=== PATIENT | male | born 2000 | race Two or more races ===

== ENCOUNTER 2024-12-17 17:06 | Emergency (ER) | payer OTHER ==
[~2024-12-17] VITALS: Ht 175.3 cm; Wt 70.3 kg
[2024-12-17] MEDS ORDERED: PROTONIX20 MG (18:00)
[2024-12-17] MEDS ORDERED: NASAL ALLERGY16.9 ML (18:00)
[2024-12-17 18:58] LABS: BASO % 0.5 % (0.1-1.2); EOS # 0.28 (0.04-0.54); EOS % 2.8 % (0.7-7.0); HEMATOCRIT 40.6 % (40.1-51.0); HEMOGLOBIN 13.6 g/dL (13.7-17.5); LYMPH # 1.92 (1.18-3.74); LYMPH % 19.4 % (19.3-53.1); MEAN CORPUSCULAR HEMOGLOBIN 29.9 pg (25.6-32.2); MONO # 0.87 (0.24-0.82); MONO % 8.8 % (4.7-12.5); NEUT # 6.78 (1.56-6.13); NEUT % 68.3 % (34.0-71.1); PLATELET COUNT 267 K/uL (163-369); RED BLOOD COUNT 4.55 M/uL (4.63-6.08); RED CELL DISTRIBUTION WIDTH 12.2 % (11.6-14.4)
[2024-12-17 19:21] LABS: COVID-19 AG NEGATIVE (NEGATIVE); INFLUENZA A AG NEGATIVE (NEGATIVE)
[2024-12-17] MEDS ORDERED: AMOX-CLAV 875-1 EACH PO (20:46)
== END 2024-12-17 21:17 | disposition home or self-care (01) ==
LOC: ER 19:01
PROVIDERS: Preventive Medicine Public Health & General Preventive Medicine
DX: J32.9 Chronic sinusitis, unspecified (principal); R09.81 Nasal congestion; Z20.822 Contact with and (suspected) exposure to COVID-19

== ENCOUNTER → 2024-12-18 | Emergency (ER) | payer OTHER ==
[~2024-12-18] VITALS: Ht 175.3 cm; Wt 70.3 kg
[~2024-12-18] MED LIST: AMOX-CLAV 875-1 EACH PO; NASAL ALLERGY16.9 ML; PROTONIX20 MG
== END | disposition left against medical advice (07) ==
LOC: ER 20:08
DX: Z53.21 Procedure and treatment not carried out due to patient leaving prior to being seen by health care provider (principal)